=== PATIENT | male | born 1945 | race Two or more races ===

== ENCOUNTER 2021-11-17 22:12 | Emergency (ER) | payer OTHER ==
[~2021-11-17] VITALS: Ht 165.1 cm; Wt 65.8 kg
[2021-11-17 22:16] VITALS: BP 145/54
== END 2021-11-17 22:51 | disposition left against medical advice (07) ==
LOC: ER 22:12
DX: R11.2 Nausea with vomiting, unspecified (principal); R10.13 Epigastric pain; Z53.21 Procedure and treatment not carried out due to patient leaving prior to being seen by health care provider